=== PATIENT | male | born 1965 | race Caucasian/White ===

== ENCOUNTER 2018-11-13 12:28 | Day surgery (SDC) | payer BC ==
[2018-11-13] MEDS ORDERED: FENTANYL PF 100MCG/2ML VIAL IV ONE (12:29)
[2018-11-13] MEDS ORDERED: PROPOFOL 10 MG/ML VIAL IV ONE (12:29)
[2018-11-13] MEDS ORDERED: LIDOCAINE 2% MDV (20MG/ML) 20ML VIAL IV ONE (12:29)
--- NOTE | 2018-11-14 17:20 | Operative Note ---
DATE: 11/13/2018 OPERATION: 1. ESOPHAGOGASTRODUODENOSCOPY with biopsy. 2. COLONOSCOPY with cold forceps polyp removal. PREOPERATIVE DIAGNOSIS: Chronic heartburn and noncardiac chest pain and colon cancer screening. POSTOPERATIVE DIAGNOSES: 1. Nonerosive antral gastritis. 2. Sigmoid polyp. PROCEDURE: After informed consent was obtained from the patient, he was placed in the left lateral decubitus position in the endoscopy suite, sedated and monitored by the department of anesthesia. A well-lubricated [id number] gastroscope was placed in the posterior oropharynx under direct visualization and passed to the proximal esophagus. The endoscope was advanced through the proximal, mid, and distal esophagus. The esophagus and GE junction were unremarkable. The gastric body and antrum were carefully inspected. There were streaky erythematous changes in the distal body and antrum. The pylorus, duodenal bulb, and sweep were unremarkable. J-turn views of the proximal stomach were unrevealing. The endoscope was straightened. Antral biopsies were obtained. The stomach was deflated and the endoscope removed to the course of the proximal stomach and esophagus with no new findings noted. Digital rectal exam was performed which was unremarkable. A well-lubricated [id number] colonoscope was inserted into the rectum and advanced to the cecum. Preparation quality was excellent. The cecum, cecal bulb, ileocecal valve, ascending colon, transverse colon, and descending colon were free of inflammatory changes, mass lesions, or polyps. There was a 4 mm sigmoid polyp which was sessile, removed in piecemeal fashion with a cold forceps. The rectum as unremarkable in forward and J-turn views. The endoscope was straightened, the rectal ampulla deflated, and the endoscope was removed. RECOMMENDATIONS: I suggest the patient continue his current medical program. He will require a repeat colonoscopy in 5-10 years. Further recommendations will be forthcoming once tissue histology is available. As always, thank you for allowing me to participate in the healthcare of your patients. ISABELA
== END 2018-11-13 14:18 | disposition home or self-care (01) ==
LOC: HOP 12:28
PROVIDERS: ATTEND Internal Medicine Gastroenterology
DX: Z12.11 Encounter for screening for malignant neoplasm of colon (principal); K63.5 Polyp of colon; R12 Heartburn; R07.89 Other chest pain; K29.50 Unspecified chronic gastritis without bleeding; F17.210 Nicotine dependence, cigarettes, uncomplicated; K21.9 Gastro-esophageal reflux disease without esophagitis